=== PATIENT | female | born 1985 | race Caucasian/White ===

== ENCOUNTER 2020-12-16 09:11 | Emergency (ER) | payer OTHER ==
[~2020-12-16] VITALS: Ht 162.5 cm; Wt 69.1 kg
--- NOTE | 2020-12-16 10:02 | ED Lower Extremity ---
General Chief Complaint: Lower Extremity Stated Complaint: WC LT KNEE INJ Source: patient History of Present Illness Date Seen by Provider: Dec 16, 2020 Time Seen by Provider: 09:46 Initial Comments 35 yo female presents with complaint of left knee pain medial and posterior aspect since twisting injury getting in to vehicle and slipped yesterday morning, December 15. She has had prior scope done over 20 years ago. She states she tried to go to clinic at [facility] but that there was an issue with the computer still showing it was [facility] and so they could not see her and so she finally came to the ED today. She denies other injury. She has taken 400 mg Ibuprofen this am with little improvement. She is able to bear weight but it is painful. Hurts more to bend knee and to extend her knee. No numbness, tingling, change in color. She works for [employer]. Onset: yesterday Severity: severe Pain/Injury Location: left knee Method of Injury: twisted Modifying Factors: Worse With Movement Allergies and Home Medications Allergies Coded Allergies: Sulfa (Sulfonamide Antibiotics) (Verified Allergy, Unknown, 12/16/20) Home Medications Ibuprofen 800 Mg Tablet, 800 MG PO Q8H PRN for PAIN Prescribed by: DHARA ERNANDEZ on 12/16/20 1110 Patient Home Medication List Home Medication List Reviewed: Yes Review of Systems Constitutional: No chills, No fever EENTM: no symptoms reported Respiratory: no symptoms reported Cardiovascular: no symptoms reported Genitourinary: no symptoms reported Musculoskeletal: see HPI Skin: no symptoms reported Psychiatric/Neurological: No Symptoms Reported Past Wgvhpve-Kcpxvn-Hgbjil Hx Patient Social History Tobacco Use?: Yes Tobacco type used: Cigarettes Smoking Status: Current Everyday Smoker Substance use?: No Past Medical History Surgeries: Yes Orthopedic (left knee arthroscopy over 20 years ago) Respiratory: No Cardiac: No Neurological: No Reproductive Disorders: No Genitourinary: No Gastrointestinal: No Musculoskeletal: No Endocrine: No HEENT: No Cancer: No Psychosocial: No Physical Exam Vital Signs Vital Signs - First Documented 12/16/20 09:50 Temp 36.7 Pulse 60 Resp 16 B/P (MAP) 127/64 (85) Pulse Ox 98 O2 Delivery Room Air Capillary Refill : Height, Weight, BMI Height: '" Weight: lbs. oz. kg; BMI Method: General Appearance: WD/WN, mild distress Cardiovascular: normal peripheral pulses Knees: left knee pain (pain with palpation of medial aspect of left knee. Increased with flexion and extension. No joint effusion appreciated. no ecchymosis. pt tensing muscles so unable to fully evaluate for laxity of joint) Neurologic/Tendon: normal sensation, normal motor functions, normal tendon functions Neurologic/Psychiatric: alert, oriented x 3 Skin: normal color, warm/dry Progress/Results/Core Measures Results/Orders My Orders Orders - DHARA ERNANDEZ MD Knee 3 View Left (12/16/20 09:55) Knee Immobilizer (12/16/20 11:11) Crutches (12/16/20 11:11) Vital Signs/I&O 12/16/20 12/16/20 09:50 11:45 Temp 36.7 Pulse 60 84 Resp 16 16 B/P (MAP) 127/64 (85) 110/62 Pulse Ox 98 100 O2 Delivery Room Air Room Air Progress Progress Note #1: Progress Note obtain xrays to evaluate for bony injury. Progress Note #2: Progress Note no acute fracture or joint effusion on imaging. Treat symptomatically with knee immobilizer, crutches for weight bearing as tolerated, ibuprofen for pain, follow up with Work Comp for continued evaluation Diagnostic Imaging Diagonstic Imaging: Xray Plain Films/CT/US/NM/MRI: knee Comments NAME: JAYY GUERRERO [facility] REC#: [id number] PT STATUS: REG ER : 1985 PHYSICIAN: DHARA ERNANDEZ MD ADMIT DATE: 12/16/20/ER FS Signed Date of Exam:12/16/20 KNEE 3 VIEW LEFT INDICATION: Left knee pain, trauma. COMPARISON: None. FINDINGS: Three views of the left knee demonstrate no fracture or dislocation. The articular surfaces are normal. No joint effusion. IMPRESSION: Negative left knee. Dictated by: Dictated on workstation # [id number] Dict: 12/16/20 1049 Trans: 12/16/20 1054 [id number] Interpreted by: CHON TREVIZO Electronically signed by: CHON TREVIZO 12/16/20 1054 Reviewed: Reviewed by Me Departure Impression Primary Impression: Left knee sprain Qualified Codes: S83.92XA - Sprain of unspecified site of left knee, initial encounter Disposition: HOME, SELF-CARE Condition: Stable Departure-Patient Inst. Decision time for Depature: 11:11 Referrals: NO,LOCAL PHYSICIAN (PCP/Family) Primary Care Physician Patient Instructions: How to Use Crutches, Knee Immobilizer (DC), Knee Sprain ED, Using Cold for Pain Add. Discharge Instructions: Use knee immobilizer to let your knee and leg rest and heal. Crutches for weight bearing as tolerated. Ice 20-30 minutes every few hours as needed for pain. Follow up with Work Comp clinic for further evaluation and may need to see Orthopedics or have an MRI if continued problems/concerns. Check with your employer to see what clinic they want you to go see and where to follow up. Wear the immobilizer and use crutches until you are followed up in clinic. Be seen in clinic within the next 3-5 days. All discharge instructions reviewed with patient and/or family. Voiced understanding. Scripts Ibuprofen (Ibuprofen) 800 Mg Tablet 800 MG PO Q8H PRN for PAIN for 10 Days, #30 TAB 0 Refills Prov: DHARA ERNANDEZ MD 12/16/20 DHARA ERNANDEZ MD Dec 16, 2020 10:02
--- NOTE | 2020-12-16 10:51 | Diagnostic Imaging Report ---
INDICATION: Left knee pain, trauma. COMPARISON: None. FINDINGS: Three views of the left knee demonstrate no fracture or dislocation. The articular surfaces are normal. No joint effusion. IMPRESSION: Negative left knee. Dictated by: Dictated on workstation # [id number]
[2020-12-16] MEDS ORDERED: IBUP-1780 PO (11:10)
[2020-12-16 11:45] VITALS: BP 110/62
== END 2020-12-16 11:50 | disposition home or self-care (01) ==
LOC: ER FS 09:13
DX: S83.92XA Sprain of unspecified site of left knee, initial encounter (principal); F17.210 Nicotine dependence, cigarettes, uncomplicated; X50.1XXA Overexertion from prolonged static or awkward postures, initial encounter
CPT/HCPCS: 73562; 99283; L1830

== ENCOUNTER 2021-03-28 12:04 | Emergency (ER) | payer OTHER ==
[~2021-03-28] VITALS: Ht 162.6 cm; Wt 70.5 kg
[~2021-03-28 12:04] MED LIST: IBUP-1780 PO
[2021-03-28 12:11] VITALS: BP 123/55
--- NOTE | 2021-03-28 12:12 | ED Lower Extremity ---
General Chief Complaint: Lower Extremity Stated Complaint: RT ANKLE INJ History of Present Illness Date Seen by Provider: Mar 28, 2021 Time Seen by Provider: 12:10 Initial Comments 36-year-old female presents with right ankle injury. She reports pain to the lateral aspect of the ankle. She reports that she was playing with her kids on a blowup bouncy house when she came down on the seem wrong and twisted her ankle. She is able to bear weight. The injury happened yesterday Allergies and Home Medications Allergies Coded Allergies: Sulfa (Sulfonamide Antibiotics) (Verified Allergy, Unknown, 12/16/20) Patient Home Medication List Home Medication List Reviewed: Yes Ibuprofen (Ibuprofen) 800 Mg Tablet, 800 MG PO Q8H PRN for PAIN Prescribed by: DHARA ERNANDEZ on 12/16/20 1110 Review of Systems Constitutional: No chills, No fever Respiratory: no symptoms reported Cardiovascular: no symptoms reported Gastrointestinal: no symptoms reported Musculoskeletal: see HPI Skin: see HPI Psychiatric/Neurological: No Symptoms Reported Past Ktmeriy-Cyjjor-Qngina Hx Past Medical History Surgeries: Yes Orthopedic Respiratory: No Cardiac: No Neurological: No Reproductive Disorders: No Genitourinary: No Gastrointestinal: No Musculoskeletal: No Endocrine: No HEENT: No Cancer: No Psychosocial: No Physical Exam Vital Signs Vital Signs - First Documented 03/28/21 12:11 Temp 36.1 Pulse 94 Resp 16 B/P (MAP) 123/55 (77) Pulse Ox 98 O2 Delivery Room Air Capillary Refill : Height, Weight, BMI Height: '" Weight: lbs. oz. kg; 26.00 BMI Method: General Appearance: WD/WN, no apparent distress Neck: full range of motion, supple Cardiovascular: normal peripheral pulses, regular rate, rhythm Respiratory: lungs clear, normal breath sounds Gastrointestinal: non tender, soft Hips: bilateral hip non-tender Legs: bilateral leg non-tender Knees: bilateral knee non-tender Ankles: right ankle soft tissue tenderness, right ankle swelling Feet: right foot soft tissue tenderness Neurologic/Psychiatric: alert, normal mood/affect, oriented x 3 Skin: ecchymosis (Mild lateral right ankle) Progress/Results/Core Measures Results/Orders My Orders Orders - RONEN BENSON DO Ankle 3 View Right (03/28/21 12:12) Vital Signs/I&O 03/28/21 12:11 Temp 36.1 Pulse 94 Resp 16 B/P (MAP) 123/55 (77) Pulse Ox 98 O2 Delivery Room Air Diagnostic Imaging Diagonstic Imaging: Xray Plain Films/CT/US/NM/MRI: ankle Comments Date of Exam:03/28/21 ANKLE 3 VIEW RIGHT EXAMINATION: Right ankle radiographs, 3 views. COMPARISON: None. HISTORY: 36-year-old female, right ankle injury. Right ankle pain. FINDINGS: The alignment of the ankle mortise is unremarkable. There is no tibiotalar joint effusion. There is no identified acute fracture. There is no radiopaque foreign body. Joint spaces are well preserved. IMPRESSION: Unremarkable radiographs of the right ankle. Reviewed: Reviewed by Me, Reviewed/Discussed Departure Impression Primary Impression: Sprain and strain of ankle Disposition: 01 HOME, SELF-CARE Condition: Stable Departure-Patient Inst. Referrals: NO,LOCAL PHYSICIAN (PCP/Family) Primary Care Physician Patient Instructions: Ankle Sprain (DC) Add. Discharge Instructions: Renny wrap to right ankle as needed Ibuprofen as needed for pain 4% topical lidocaine with menthol as directed on package as needed for All discharge instructions reviewed with patient and/or family. Voiced pina mccloud. RONEN BENSON DO Mar 28, 2021 12:12
--- NOTE | 2021-03-28 12:31 | Diagnostic Imaging Report ---
EXAMINATION: Right ankle radiographs, 3 views. COMPARISON: None. HISTORY: 36-year-old female, right ankle injury. Right ankle pain. FINDINGS: The alignment of the ankle mortise is unremarkable. There is no tibiotalar joint effusion. There is no identified acute fracture. There is no radiopaque foreign body. Joint spaces are well preserved. IMPRESSION: Unremarkable radiographs of the right ankle. Dictated by: Dictated on workstation # [id number]
== END 2021-03-28 12:44 | disposition home or self-care (01) ==
LOC: EDUNIT# 12:04 → ER FS 12:06
DX: S93.401A Sprain of unspecified ligament of right ankle, initial encounter (principal); X50.0XXA Overexertion from strenuous movement or load, initial encounter
CPT/HCPCS: 73610